=== PATIENT | female | born 1965 | race Two or more races ===

== ENCOUNTER 2023-04-12 15:39 | Emergency (ER) | payer MEDICAID, OTHER ==
[~2023-04-12] VITALS: Ht 157.5 cm; Wt 96.0 kg
[2023-04-12] MEDS ORDERED: IBU600T PO (17:14)
[2023-04-12] MEDS ORDERED: CYCL-611 PO (17:14)
[2023-04-12] MEDS ORDERED: ONDANSETRON ODT 4 MG TAB PO ONE (17:15)
[2023-04-12] MEDS ORDERED: HYDROcodone-ACET 5/325MG TAB PO ONE (17:15)
[2023-04-12 17:40] VITALS: BP 180/96
== END 2023-04-12 17:45 | disposition home or self-care (01) ==
LOC: EDUNIT# 15:39 → EDBD 15:39 → ER 15:39
DX: S13.9XXA Sprain of joints and ligaments of unspecified parts of neck, initial encounter (principal); S43.402A Unspecified sprain of left shoulder joint, initial encounter; S09.90XA Unspecified injury of head, initial encounter; I10 Essential (primary) hypertension; Z79.1 Long term (current) use of non-steroidal anti-inflammatories (NSAID); Z79.899 Other long term (current) drug therapy; Y04.2XXA Assault by strike against or bumped into by another person, initial encounter; Y93.89 Activity, other specified; Y92.89 Other specified places as the place of occurrence of the external cause; Y99.8 Other external cause status
CPT/HCPCS: 70450; 72125; 73030; Q0162